=== PATIENT | female | born 1970 | race Caucasian/White ===

== ENCOUNTER → 2022-04-04 | Outpatient (CLI) | payer OTHER | LOC: KCIC MAMMO 08:04 | PROVIDERS: ATTEND Family Medicine | DX: Z12.31 Encounter for screening mammogram for malignant neoplasm of breast (principal) | CPT/HCPCS: 77063; 77067 ==

== ENCOUNTER → 2022-04-18 | Outpatient (CLI) | payer OTHER ==
--- NOTE | 2022-04-18 12:46 | RAD ---
US BREAST BILAT History:Reason: ABNORMAL MAMM / Spl. Instructions: / History: Comparison: April 04, 2022 Technique: Sonographic examination of the bilateral breast was performed and multiple static images were obtained. Findings: Right ultrasound: Hypoechoic mass within the right breast 2:00 position 4 cm from the nipple measures 0.5 x 0.3 cm. No suspicious posterior shadowing. Cyst within the right breast 1:00 position 4 cm fro m the nipple measures 0.4 x 0.4 x 0.2 cm. No suspicious finding within the right medial inferior ananth st correspond with mammographic finding. No pathologic lymphadenopathy. Left ultrasound: Small hypoechoic complicated cyst within the left breast 12:00 position 3 cm from th e nipple measures 0.2 x 0.2 x 0.3 cm. Additional hypoechoic complicated cyst at the 1:00 position 2 c m from the nipple measures 0.3 x 0.2 cm. No pathologic lymphadenopathy. Small cystic lesions do not n ecessarily correspond with mammographic finding. Impression: 1. Right breast hypoechoic mass, may represent fibroadenoma or complicated cyst. 2. Hypoechoic masses within the left breast, most likely complicated cysts. Recommend 6 month follow-up bilateral mammogram and right breast ultrasound. If prior images are made available for review an addendum can be made. BI-RADS Category 3: Probably Benign. Electronically signed by: Vick Barnes DO (04/18/2022 12:44 PM) [id number]
== END ==
LOC: US 11:32
PROVIDERS: ATTEND Family Medicine
DX: N63.11 Unspecified lump in the right breast, upper outer quadrant (principal); N60.01 Solitary cyst of right breast; N60.02 Solitary cyst of left breast
CPT/HCPCS: 76641-50